=== PATIENT | male | born 1965 | race Hispanic/Latino ===

== ENCOUNTER 2020-03-25 05:44 | Day surgery (SDC) | payer OTHER ==
[2020-03-25 06:39] LABS: Basophils % (Auto) 0.7 % (0.0-1.8); Eosinophils # (Auto) 0.1 K/mm3 (0.0-0.4); Hematocrit 40.1 % (35.5-45.6); Hemoglobin 13.6 gm/dl (11.8-15.2); Lymphocytes # (Auto) 2.5 K/mm3 (1.2-5.4); Lymphocytes % (Auto) 41.4 % (13.4-35.0); Mean Corpuscular HGB Conc 34 % (32-34); Mean Corpuscular Volume 93 fl (84-94); Monocytes # (Auto) 0.5 K/mm3 (0.0-0.8); Monocytes % (Auto) 9.1 % (0.0-7.3); Platelet Count 143 K/mm3 (140-440); Red Blood Count 4.29 M/mm3 (3.65-5.03)
[2020-03-25] MEDS ORDERED: ASPIRIN EC 325 MG TAB PO ONE ×2 (06:39→06:46)
[2020-03-25 06:50] LABS: INR 0.93 (0.87-1.13)
[2020-03-25 06:51] LABS: BUN/Creatinine Ratio 24; Blood Urea Nitrogen 19 mg/dL (9-20); Calcium 9.3 mg/dL (8.4-10.2); Hemolysis Index 6; Partial Thromboplastin Time 32.5 Sec. (24.2-36.6)
[2020-03-25] MEDS ORDERED: HEPARIN/NS 5000 UNIT/500ML 1,000 ML IR ONE (06:56)
[2020-03-25] MEDS ORDERED: LIDOCAINE (2%) 20 MG/1 ML VIAL 20 ML MDV INFILTRATI ONE (06:57)
[2020-03-25] MEDS ORDERED: MIDAZOLAM 2 MG/2 ML INJ ONE (07:00)
[2020-03-25] MEDS ORDERED: SODIUM CHLORIDE 0.9% 500 ML 500 ML IV SCH (07:00)
[2020-03-25] MEDS: fentaNYL 100 MCG/2 ML INJ ONE ×2 (07:35→07:55)
[2020-03-25] MEDS: VERAPAMIL 5 MG/2 ML INJ ONE ×2 (07:36→07:37)
[2020-03-25] MEDS: HEPARIN 10,000 UNITS/10 ML VIAL ONE ×2 (07:36→07:37)
[2020-03-25] MEDS: NITROGLYCERIN SYRINGE 3 ML ONE ×2 (07:36→07:37)
[2020-03-25] MEDS ORDERED: MORPHINE 10 MG/1 ML INJ ONE (07:53)
[2020-03-25] MEDS ORDERED: ALPRAZolam 1 MG TAB PO ONE (08:28)
[2020-03-25] MEDS ORDERED: HYDROcodone/ACETAMINOPHEN 5-325 MG TAB PO PRN (08:30)
[2020-03-25] MEDS ORDERED: traMADol 50 MG TAB PO PRN (08:30)
[2020-03-25 11:00] VITALS: BP 104/59
--- NOTE | 2020-03-30 07:26 | Cardiac Catherization Report ---
INDICATION: Abnormal stress imaging indicating LAD ischemia. Known dilated cardiomyopathy with ejection fraction of approximately 20-25%. The patient underwent left heart catheterization and measurement of the left end-diastolic filling pressure. A left ventriculogram was not performed due to elevated end-diastolic filling pressure. HEMODYNAMICS: Aortic pressure was 141/76. The left ventricular end-diastolic filling pressure was between 27-30 mmHg. Upon pullback, there was no gradient across the aortic valve. There was minimal blood loss. DESCRIPTION OF OPERATION: The patient was prepped in the usual sterile fashion. Access was obtained to the right radial artery without complication. Standard catheters were used for the procedure. To engage the coronaries, a diagnostic TIG catheter was used. The left ventricular end-diastolic filling pressure was measured by crossing the aortic valve. There was no significant gradient across the aortic valve. CORONARY ANATOMY: 1. This is a right dominant system. The right coronary artery is large. There is mild diffuse irregularities with mild disease up to 20-30%. There are no obstructive lesions in the right coronary artery. 2. Left main: The left main is calcified and bifurcates into the LAD and circumflex arteries. The left main is free of significant disease. 3. Left anterior descending: The left anterior descending has an eccentric lesion of approximately 60% in the proximal segment. The remaining segments of the LAD are calcified without any significant obstructive disease. 4. Circumflex: The circumflex is a large vessel and has mild luminal irregularities up to 20%. There are no focal obstructions in the circumflex system. FINAL CONCLUSIONS: 1. Single-vessel disease with a 60% eccentric bleeding lesion in the proximal left anterior descending. Otherwise, nonobstructive disease. 2. Elevated end-diastolic filling pressure, compatible with dilated cardiomyopathy. 3. Today's results suggest a cardiomyopathy out of proportion to the amount of coronary artery disease identified. PLAN: The lesion in the left anterior descending system appears moderate. At this time, we advised medical therapy and will optimize medications. Hopefully, we can lower the left ventricular end-diastolic filling pressure and improve overall cardiac function. Diet and lifestyle modifications have also been discussed with the patient, this includes smoking cessation. JOB# [id number] GP/NTS
== END 2020-03-25 13:30 | disposition home or self-care (01) ==
LOC: CATHLABREC 05:44 → CATH 05:44 → CATHLABREC 13:30
PROVIDERS: ATTEND Internal Medicine Cardiovascular Disease
DX: R94.39 Abnormal result of other cardiovascular function study (principal); I42.0 Dilated cardiomyopathy; R07.9 Chest pain, unspecified; I44.7 Left bundle-branch block, unspecified; I11.0 Hypertensive heart disease with heart failure; I50.22 Chronic systolic (congestive) heart failure; E78.00 Pure hypercholesterolemia, unspecified; F41.9 Anxiety disorder, unspecified; J45.909 Unspecified asthma, uncomplicated; F32.9 Major depressive disorder, single episode, unspecified; I20.8 Other forms of angina pectoris; Z72.89 Other problems related to lifestyle; Z88.8 Allergy status to other drugs, medicaments and biological substances; Z79.899 Other long term (current) drug therapy; Z87.891 Personal history of nicotine dependence; Z98.890 Other specified postprocedural states; Z82.49 Family history of ischemic heart disease and other diseases of the circulatory system
CPT/HCPCS: 36415; 80048; 85025; 85610; 85730; 93005; 93458; 99156; 99157; C1887; C1894; J1644; J2250; J2270; J3010; J7040; Q9967